=== PATIENT | female | born 1950 | race Hispanic/Latino ===

== ENCOUNTER 2018-06-08 05:44 | Observation (INO) | payer MEDICARE ==
--- NOTE | 2018-06-05 11:34 | Diagnostic Imaging Report ---
EXAMINATION: PA and lateral views of the chest. COMPARISON: None CLINICAL HISTORY: Preadmission, knee surgery DISCUSSION: Lines/tubes: None. Lungs: The lungs are well inflated and clear. No pneumonia or pulmonary edema. Pleura: No pleural effusion or pneumothorax. Heart and mediastinum: The cardiomediastinal silhouette is normal. Bones and soft tissues: No acute bony abnormalities. IMPRESSION: No acute cardiopulmonary abnormalities. Signed by: Dr. Cole Garcia M.D. on 06/05/2018 11:31 AM
[~2018-06-08] VITALS: Ht 127 cm; Wt 64.7 kg
[~2018-06-08 05:44] MED LIST: ATORVASTATIN CA40 MG PO; BACID PO; BACTRIM DS TAB1 EACH PO; CIPRO500 MG PO; LEVAQUIN250 MG PO; LEVOTHYROXINE88 MCG PO; LISINOPRIL10 MG PO; METFORMIN HCL500 MG PO; NOVOLIN 70100 UNITS/ SQ; OMEPRAZOLE40 MG PO; SIMVASTATIN40 MG PO; SYNTHROID88 MCG PO; TOUJEO SC
[2018-06-08] MEDS ORDERED: DEXAMETHASONE SOD PHOS 10 MG/1 ML VIAL ONE (06:36)
[2018-06-08] MEDS ORDERED: CELECOXIB 200 MG CAP ONE (06:36)
[2018-06-08] MEDS ORDERED: GABAPENTIN 300 MG CAP ONE (06:36)
[2018-06-08] MEDS ORDERED: CEFAZOLIN SOD 2 GM/D5W 50ML 50 ML IV ONE (06:36)
[2018-06-08] MEDS ORDERED: BACITRACIN 50,000 UNIT VIAL ONE (07:02)
[2018-06-08] MEDS ORDERED: TRANEXAMIC ACID 1,000 MG/10 ML ML ONE (07:02)
[2018-06-08] MEDS ORDERED: DEXTROSE 5% 250ML 250 ML IV ONE (07:03)
[2018-06-08] MEDS ORDERED: ROPIVACAINE 246.25 MG, EPINEPHRINE HCL 1:1000 0.5 MG, CLONIDINE HCL 0.08 MG, KETOROLAC ... INJ ONE ×5 (07:30)
[2018-06-08] MEDS ORDERED: DIPHENHYDRAMINE HCL INJ 50 MG/ML VIAL IM/IV PRN (10:00)
[2018-06-08] MEDS ORDERED: HYDROCODONE/APAP 7.5MG-325MG 1 EA TAB PO PRN (10:00)
[2018-06-08] MEDS ORDERED: HYDROCODONE/APAP 5MG-325MG TAB PO PRN (10:00)
[2018-06-08] MEDS ORDERED: ACETAMINOPHEN 650 MG SUPP PR PRN (10:00)
[2018-06-08] MEDS ORDERED: KETOROLAC TROMETHAMINE 30 MG/ML VIAL IV PRN (10:00)
[2018-06-08] MEDS ORDERED: ONDANSETRON HCL INJ 2 MG/ML VIAL IV PRN (10:00)
[2018-06-08] MEDS ORDERED: PROMETHAZINE HCL (IM) 25 MG/ML VIAL IM PRN (10:00)
[2018-06-08] MEDS ORDERED: DOCUSATE SODIUM 100 MG CAP PO PRN (10:00)
[2018-06-08 11:00] VITALS: BP 140/65
[2018-06-08] MEDS: SODIUM CHLORIDE 0.9% 1000ML 1,000 ML IV SCH ×2 (11:05→19:53)
[2018-06-08 11:21] VITALS: BP 140/65
--- NOTE | 2018-06-08 11:41 | Diagnostic Imaging Report ---
Exam: Left knee 2 views History: Postop Comparison: None. Findings: See impression Impression: Postoperative radiographs of the left knee show intact and appropriately positioned prosthetic hardware. Expected overlying skin lance and subcutaneous gas. No periprosthetic displaced fracture. Signed by: Dr. Arian Simmons M.D. on 06/08/2018 11:38 AM
[2018-06-08] MEDS: ACETAMINOPHEN 1000 MG/100 ML IV SCH ×2 (12:27→18:30)
[2018-06-08] MEDS ORDERED: CEFAZOLIN SOD 1 GM/D5W 50ML 50 ML IV SCH (14:00)
[2018-06-08 16:02] VITALS: BP 129/90
[2018-06-08] MEDS: ASPIRIN 325 MG TAB PO SCH (16:46)
[2018-06-08] MEDS: CEFAZOLIN SOD 1 GM VIAL IV SCH (16:46)
[2018-06-08] MEDS: CELECOXIB 200 MG CAP PO SCH (16:46)
[2018-06-08] MEDS ORDERED: ONDANSETRON HCL INJ 2 MG/ML VIAL ONE (17:00)
[2018-06-08] MEDS ORDERED: DEXAMETHASONE SOD PHOS INJ 4 MG/ML VIAL ONE (17:00)
[2018-06-08] MEDS ORDERED: PROPOFOL IV EMULSION 10 MG/ML 20 ML VIAL ONE (17:00)
[2018-06-08] MEDS ORDERED: SEVOFLURANE INHAL SOLN 250 ML PEN BTL ONE (17:00)
[2018-06-08] MEDS ORDERED: PHENYLEPHRINE HCL 1% 10 MG/ML VIAL ONE (17:00)
[2018-06-08] MEDS ORDERED: CELECOXIB 100 MG CAP PO SCH (17:00)
[2018-06-08] MEDS ORDERED: LIDOCAINE HCL 2% LOCAL INJ 5 ML SDV VIAL INJ ONE (17:00)
[2018-06-08] MEDS ORDERED: DEXTROSE 50% SYRINGE 50 ML IV PRN (17:15)
[2018-06-08] MEDS ORDERED: PANTOPRAZOLE SOD 40 MG TABEC PO PRN (17:15)
[2018-06-08] MEDS ORDERED: EPINEPHRINE HCL INJ 1 MG/ML AMP ONE (17:18)
[2018-06-08] MEDS ORDERED: BUPIVACAINE HCL 0.5% INJ 30 ML VIAL INJ ONE (17:18)
[2018-06-08] MEDS ORDERED: MIDAZOLAM HCL 2 MG/2 ML VIAL ONE (17:23)
[2018-06-08] MEDS ORDERED: FENTANYL CITRATE/PF 100MCG/2 ML INJ ONE (17:23)
[2018-06-08] MEDS: INSULIN LISPRO 100 UNIT/1 ML 3ML VIAL SQ SCH ×2 (17:46→20:37)
[2018-06-08 20:00] VITALS: BP 131/63
[2018-06-08 20:35] VITALS: BP 137/63
[2018-06-08] MEDS ORDERED: LISINOPRIL 10 MG TAB PO SCH (21:00)
[2018-06-08] MEDS ORDERED: INSULIN GLARGINE SC SCH (21:00)
[2018-06-08] MEDS ORDERED: LEVOTHYROXINE SODIUM 88 MCG TAB PO SCH (21:00)
[2018-06-08] MEDS ORDERED: ZOLPIDEM TARTRATE 5 MG TAB PO PRN (21:00)
[2018-06-08] MEDS ORDERED: SIMVASTATIN 40 MG TAB PO SCH (21:00)
[2018-06-08] MEDS ORDERED: LISINOPRIL 20 MG TAB PO SCH (21:00)
[2018-06-09] VITALS: BP 120/59
[2018-06-09] MEDS: CEFAZOLIN SOD 1 GM VIAL IV SCH ×2 (00:34→08:20)
[2018-06-09] MEDS: ACETAMINOPHEN 1000 MG/100 ML IV SCH ×2 (00:39→05:37)
[2018-06-09 04:00] VITALS: BP 102/55
[2018-06-09 05:52] LABS: BASOPHILS % 0.1 % (0.0-1.0); HEMATOCRIT 32.7 % (34.2-44.1); HEMOGLOBIN 10.9 g/dL (12.0-16.0); LYMPHOCYTES # (AUTO) 1.5 (1.0-3.2); LYMPHOCYTES % 9.7 % (18.0-39.1); MEAN CORPUSCULAR HEMOGLOBIN 28.9 pg (28-32); MEAN CORPUSCULAR HGB CONC 33.3 g/dL (31-35); MEAN CORPUSCULAR VOLUME 86.7 fL (81-99); MONOCYTES % 6.8 % (4.4-11.3); NEUTROPHILS # (AUTO) 12.7 (2.1-6.9); NEUTROPHILS % 82.9 % (38.7-80.0); PLATELET COUNT 177 x10e3/uL (140-360); RED BLOOD COUNT 3.77 x10e6/uL (3.6-5.1)
[2018-06-09] MEDS: SODIUM CHLORIDE 0.9% 1000ML 1,000 ML IV SCH (05:53)
[2018-06-09 06:20] LABS: ALBUMIN 3.3 g/dL (3.5-5.0); ALBUMIN/GLOBULIN RATIO 1.2 (0.8-2.0); ANION GAP 16.5 mmol/L (8-16); CREATININE, SERUM 1.1 mg/dL (0.57-1.11); POTASSIUM 4.5 mmol/L (3.5-5.1)
[2018-06-09 07:59] VITALS: BP 139/74
[2018-06-09] MEDS ORDERED: METFORMIN HCL 500 MG TAB PO SCH (08:00)
[2018-06-09 08:20] VITALS: BP 139/74
[2018-06-09] MEDS: INSULIN LISPRO 100 UNIT/1 ML 3ML VIAL SQ SCH ×2 (08:20→12:40)
[2018-06-09] MEDS: ASPIRIN 325 MG TAB PO SCH (08:20)
[2018-06-09] MEDS: CELECOXIB 200 MG CAP PO SCH (08:20)
--- NOTE | 2018-06-09 08:31 | Operative Report ---
DATE OF PROCEDURE: June 08, 2018 PREOPERATIVE DIAGNOSIS: Osteoarthritis, left knee. POSTOPERATIVE DIAGNOSIS: Osteoarthritis, left knee. PROCEDURE: Left total knee arthroplasty. [employer] RANGER: Ladarius Schafer PA-C The patient was brought to the operating room for induction of anesthesia. Throughout this case, my PA's assistance was necessary for retraction of soft tissue and positioning of the extremity. This allows for efficient and technically successful execution of the operation and is considered medically necessary. INDICATIONS: The patient is a 67-year-old lady who has end-stage arthritis of her left knee. She has failed conservative management and would like to proceed with a left total knee replacement. The risks and benefits of the procedure have been discussed in detail. The recovery has been explained. She states she understands and wishes to proceed. DESCRIPTION OF PROCEDURE: The patient was brought to the operating room and placed under general anesthetic. She received prophylactic antibiotics, a regional block, and tranexamic acid in the holding area. Her left lower extremity was prepped and draped in a sterile manner. A preoperative time out was performed. The extremity was exsanguinated and the proximal tourniquet was inflated to 350 mmHg. An anterior approach with a medial parapatellar arthrotomy was performed. There was evidence of breakthrough bleeding. The tourniquet was deflated. The wound was further exsanguinated a second time and the tourniquet was inflated to 350 mmHg. We proceed with the surgery. Soft tissue releases were performed to bring the knee up into flexion with the patella everted. Meniscal remnants and marginal osteophytes were removed. The cruciate ligaments were sacrificed. Throughout the case, a [employer] Persona Knee System was used. An extramedullary cutting guide was used to resect the proximal tibia. The cut was 2 mm referenced off of the affected medial side. The tibial baseplate was noted to be a size C. The central fin punch was impacted and attention was directed towards the distal femur. An intramedullary cutting guide was used to resect the distal femur in 5 degrees of valgus and rotation referencing off of a combination of landmarks including the epicondylar axis, Donna's line, and the posterior condyles. The femoral component was a size #4. The anterior and posterior cuts were made. Trial reductions were performed. A 10-mm ultracongruent tibial insert provided appropriate soft tissue balancing in full extension and 90 degrees of flexion. The patella was resurfaced with a 29 mm x 8 mm patellar button. The thickness was checked before and after and was right around 20 mm. There continued to be some breakthrough bleeding. The tourniquet was simply deflated. There was no increased bleeding with the tourniquet deflated. A 100 mL premixed pericapsular injection was placed into the surrounding soft tissue. The knee was thoroughly irrigated with a shower-tip pulsatile lavage. The components were cemented into place using a single mix of Palacos cement preloaded with antibiotics. Care was taken to remove extravasated cement. The wound was further irrigated while the cement cured. The arthrotomy was then carefully closed with interrupted #1 Ethibond. The knee was put through flexion and extension to ensure a secure closure. The skin was closed with subcuticular Vicryl and lance. A sterile bandage was applied. The patient was extubated and transported to the recovery room in stable condition. Blood loss was approximately 30 mL. At the end of the procedure, all needle and sponge counts were correct. Job#: [id number]
[2018-06-09] MEDS ORDERED: ACETAMINOPHEN 1000 MG/100 ML IV PRN (10:00)
[2018-06-09 11:39] VITALS: BP 131/62
[2018-06-09] MEDS ORDERED: ASPIRIN325 MG PO (12:53)
[2018-06-09] MEDS ORDERED: HYDROCODON-ACE1 EA12 PO (13:46)
--- NOTE | 2018-06-09 14:14 | Consultation ---
DATE OF CONSULTATION: INTERNAL MEDICINE CONSULTATION REASON FOR CONSULTATION: She is a 67-year-old female patient of [facility], presented to the hospital for total knee replacement, for left knee severe osteoarthritis. HISTORY OF PRESENT ILLNESS: Ms. Jorge Camacho is a 67-year-old female patient with history of coronary artery disease, peripheral artery disease, diabetes mellitus, hypertension, hyperlipidemia, and severe osteoarthritis, who had failed outpatient treatment for the osteoarthritis and now having a severe pain in the left knee. So, the patient was admitted for elective total knee arthroplasty, left knee. ALLERGIES: PATIENT IS ALLERGIC TO TRAMADOL. OTHER PAST MEDICAL HISTORY: Diabetes mellitus, hypertension, and hyperlipidemia. PAST SURGICAL HISTORY: Denies. SOCIAL HISTORY: Denies smoking, denies using alcohol. FAMILY HISTORY: Diabetes mellitus. MEDICATIONS: See from the list. REVIEW OF SYSTEMS: Severe knee pain, left is worst than the right. PHYSICAL EXAMINATION GENERAL: She is an elderly female patient lying in the bed, not in acute distress. VITALS: Temperature 98, pulse rate 88, respiration rate 20, blood pressure 120/78. HEENT: Normocephalic, atraumatic. NECK: No JVD. No lymphadenopathy. LUNGS: Bilateral equal air entry. No rales. No rhonchi. HEART: S1 and S2 regular. No murmur. No gallop. ABDOMEN: Soft. Bowel sounds are present. NEUROLOGICAL: No focal neurological deficit. ADMITTING IMPRESSION/DIAGNOSES 1. Left knee severe osteoarthritis, status post total knee arthroplasty. 2. Diabetes mellitus. 3. Hypertension. 4. Hyperlipidemia. 5. Hypothyroidism. PLAN AND RECOMMENDATIONS: Patient is having postop care and postop therapy. We will do Accu-Check a.c. and at bedtime with sliding scale coverage. We will use medium dose sliding scale insulin. We will monitor for electrolytes and anemia. Job#: [id number] VAS
== END 2018-06-09 14:20 | disposition home health service (06) ==
LOC: OR 05:44 → PACU V 09:55 → MED/SURG 10:55
PROVIDERS: ADMIT Specialist; ATTEND Specialist
DX: M17.12 Unilateral primary osteoarthritis, left knee (principal); E11.9 Type 2 diabetes mellitus without complications; I10 Essential (primary) hypertension; Z79.4 Long term (current) use of insulin; K21.9 Gastro-esophageal reflux disease without esophagitis; Z88.5 Allergy status to narcotic agent; I25.10 Atherosclerotic heart disease of native coronary artery without angina pectoris; E78.5 Hyperlipidemia, unspecified; Z83.3 Family history of diabetes mellitus; E03.9 Hypothyroidism, unspecified
CPT/HCPCS: 27447; 36415 ×2; 71046; 73560; 80053; 82948 ×2; 85025; 86850; 86900; 86920; 93005; 97116 ×2; 97161; G0378 ×2; G8978; G8979; J0171; J0690 ×2; J1100 ×2; J1885; J2001; J2250; J2370; J2405; J2795; J7030

== ENCOUNTER → 2021-04-10 | Outpatient (CLI) | payer OTHER ==
[~2021-04-10] MED LIST changes: +ASPIRIN325 MG PO; +HYDROCODON-ACE1 EA12 PO
== END ==
LOC: MAMMO 09:07
PROVIDERS: ATTEND Internal Medicine
DX: Z12.31 Encounter for screening mammogram for malignant neoplasm of breast (principal)

== ENCOUNTER → 2022-05-28 | Outpatient (CLI) | payer OTHER | LOC: MAMMO 09:36 | PROVIDERS: ATTEND Internal Medicine | DX: Z12.31 Encounter for screening mammogram for malignant neoplasm of breast (principal) | CPT/HCPCS: 77067 ==

== ENCOUNTER → 2023-07-08 | Outpatient (REF) | payer MEDICARE | LOC: MAMMO 08:46 | PROVIDERS: ATTEND Internal Medicine | DX: Z12.31 Encounter for screening mammogram for malignant neoplasm of breast (principal); M81.0 Age-related osteoporosis without current pathological fracture; E55.9 Vitamin D deficiency, unspecified | CPT/HCPCS: 77067; 77080 ==

== ENCOUNTER 2024-05-03 13:25 | Inpatient (IN) | payer MEDICARE ==
[~2024-05-03] VITALS: Ht 134.6 cm; Wt 59.0 kg
[2024-05-03 13:34] VITALS: TEMP 98.1
[2024-05-03 15:22] LABS: BASOPHILS # (AUTO) 0.1 (0.0-0.1); BASOPHILS % 0.4 % (0.0-1.0); EOSINOPHILS % 0.1 % (0.0-6.0); HEMATOCRIT 49.5 % (34.2-44.1); HEMOGLOBIN 15.9 g/dL (12.0-16.0); LYMPHOCYTES # (AUTO) 0.8 (1.0-3.2); MEAN CORPUSCULAR HEMOGLOBIN 29.3 pg (28-32); MEAN CORPUSCULAR HGB CONC 32.1 g/dL (31-35); MEAN CORPUSCULAR VOLUME 91.3 fL (81-99); MONOCYTES # (AUTO) 0.8 (0.2-0.8); MONOCYTES % 6.3 % (4.4-11.3); NEUTROPHILS # (AUTO) 10.2 (2.1-6.9); NEUTROPHILS % 85.7 % (38.7-80.0); PLATELET COUNT 158 x10e3/uL (140-360); RED BLOOD COUNT 5.42 x10e6/uL (3.6-5.1); RED CELL DISTRIBUTION WIDTH 14.2 % (11.7-14.4); WHITE BLOOD COUNT 11.87 x10e3/uL (4.8-10.8)
[2024-05-03] MEDS: Morphine 2mg Syringe 2 MG/ML SYR IV STA (15:52)
[2024-05-03] MEDS: ONDANSETRON HCL INJ 2MG/ML 2ML 2 MG/ML VIAL IV STA (15:52)
[2024-05-03] MEDS: SODIUM CHLORIDE 0.9% 1000ML 1,000 ML IV STA (15:52)
[2024-05-03] MEDS ORDERED: DEXTROSE 50% SYRINGE 50 ML IV PRN (16:00)
[2024-05-03 16:05] LABS: INR 0.98; PROTHROMBIN TIME 13.5 seconds (11.9-14.5)
[2024-05-03 16:06] LABS: PARTIAL THROMBOPLASTIN TIME 25.8 seconds (23.8-35.5)
[2024-05-03 16:13] LABS: ALBUMIN 3.3 g/dL (3.5-5.0); ALBUMIN/GLOBULIN RATIO 0.9 (0.8-2.0); ANION GAP 15.6 mmol/L (8-16); BILIRUBIN,TOTAL 1.1 mg/dL (0.2-1.2); CALCIUM 8.5 mg/dL (8.4-10.2); CREATININE, SERUM 1.12 mg/dL (0.57-1.11); MAGNESIUM 1.7 MG/DL (1.3-2.1); POTASSIUM 3.6 mmol/L (3.5-5.1)
[2024-05-03 16:19] LABS: TROPONIN I 0.005 ng/mL (0-0.300)
[2024-05-03] MEDS: INSULIN LISPRO 100 UNIT/1 ML 3ML VIAL SQ SCH (16:30)
[2024-05-03 19:27] LABS: TROPONIN I 0.009 ng/mL (0-0.300)
[2024-05-03] MEDS: SODIUM CHLORIDE 0.9% 1000ML 1,000 ML IV SCH (21:50)
[2024-05-03] MEDS ORDERED: SODIUM CHLORIDE 0.9% 1000ML 1,000 ML ONE (21:53)
[2024-05-03 21:59] VITALS: PULSE 76; RESP 20
[2024-05-03 22:30] VITALS: BP 177/87; PULSE 81; RESP 17; TEMP 98.4; O2SAT 98
[2024-05-03] MEDS: Morphine 2mg Syringe 2 MG/ML SYR IV PRN (23:26)
[2024-05-04] VITALS (9 sets, daily range): BP systolic 134–177; BP diastolic 66–94; PULSE 72–88; RESP 16–20; TEMP 97.9–98.9; O2SAT 95–100
[2024-05-04 05:41] LABS: BASOPHILS # (AUTO) 0.1 (0.0-0.1); BASOPHILS % 0.5 % (0.0-1.0); EOSINOPHILS # (AUTO) 0.1 (0.0-0.4); EOSINOPHILS % 1.4 % (0.0-6.0); HEMATOCRIT 40.5 % (34.2-44.1); LYMPHOCYTES # (AUTO) 1.5 (1.0-3.2); LYMPHOCYTES % 14.4 % (18.0-39.1); MEAN CORPUSCULAR HEMOGLOBIN 29.5 pg (28-32); MEAN CORPUSCULAR HGB CONC 32.1 g/dL (31-35); MONOCYTES # (AUTO) 0.8 (0.2-0.8); MONOCYTES % 7.8 % (4.4-11.3); NEUTROPHILS # (AUTO) 7.6 (2.1-6.9); NEUTROPHILS % 75.4 % (38.7-80.0); PLATELET COUNT 128 x10e3/uL (140-360); RED CELL DISTRIBUTION WIDTH 14.2 % (11.7-14.4)
[2024-05-04 06:08] LABS: ALBUMIN 2.8 g/dL (3.5-5.0); ALBUMIN/GLOBULIN RATIO 0.8 (0.8-2.0); ANION GAP 9.5 mmol/L (8-16); CALCIUM 8.5 mg/dL (8.4-10.2); CREATININE, SERUM 0.81 mg/dL (0.57-1.11); POTASSIUM 3.5 mmol/L (3.5-5.1); TOTAL PROTEIN 6.1 g/dL (6.5-8.1)
[2024-05-04 06:29] LABS: TROPONIN I 0.013 ng/mL (0-0.300)
[2024-05-04] MEDS ORDERED: PANTOPRAZOLE SOD 40 MG TABEC PO PRN (06:30)
[2024-05-04] MEDS ORDERED: ALBUTEROL/IPRATROPIUM 3 ML NEB NEB PRN (06:30)
[2024-05-04] MEDS ORDERED: SIMETHICONE 80 MG CHEW PO PRN (06:30)
[2024-05-04 07:39] LABS: CHOL/HDL RATIO 3.1 (3.0-3.6)
[2024-05-04] MEDS ORDERED: ACETAMINOPHEN 1000 MG/100 ML 100 ML IV ONE (11:45)
[2024-05-04] MEDS ORDERED: SUGAMMADEX SODIUM 200 MG/2 ML VIAL IV ONE (11:45)
[2024-05-04] MEDS ORDERED: BUPIVACAINE HCL 0.5% INJ 30 ML VIAL INJ ONE (12:19)
[2024-05-04] MEDS ORDERED: EPHEDRINE SULFATE INJ 50 MG/ML VIAL ONE (12:43)
[2024-05-04] MEDS ORDERED: ONDANSETRON HCL INJ 2MG/ML 2ML 2 MG/ML VIAL ONE (12:43)
[2024-05-04] MEDS ORDERED: LIDOCAINE HCL 2% LOCAL INJ 5 ML SDV VIAL INJ ONE (12:43)
[2024-05-04] MEDS ORDERED: ROCURONIUM BROMIDE 10 MG/ML 5ML VIAL IV ONE (12:43)
[2024-05-04] MEDS ORDERED: PROPOFOL IV EMULSION 10 MG/ML 20 ML VIAL ONE (12:43)
[2024-05-04] MEDS ORDERED: METOCLOPRAMIDE HCL 10 MG/2ML VIAL ONE (12:43)
[2024-05-04] MEDS ORDERED: SEVOFLURANE INHAL SOLN 250 ML PEN BTL ONE (12:43)
[2024-05-04] MEDS ORDERED: ACETAMINOPHEN 1000 MG/100 ML IV ONE (12:43)
[2024-05-04] MEDS ORDERED: SUCCINYLCHOLINE CHLORIDE 20 MG/ML 10ML VIAL ONE (12:43)
[2024-05-04] MEDS ORDERED: ROPIVACAINE 0.5% 5 MG/ML 30 ML SDV ONE (12:57)
[2024-05-04] MEDS ORDERED: EPINEPHRINE HCL 1:1000 1ML 1 MG/ML AMP ONE (12:57)
[2024-05-04] MEDS ORDERED: MIDAZOLAM HCL 2 MG/2 ML VIAL ONE (13:45)
[2024-05-04] MEDS ORDERED: FENTANYL CITRATE/PF 100MCG/2 ML INJ ONE (13:45)
[2024-05-04] MEDS: SIMVASTATIN 40 MG TAB PO SCH (21:57)
[2024-05-04] MEDS: LEVOTHYROXINE SODIUM 88 MCG TAB PO SCH (21:57)
[2024-05-05] VITALS (11 sets, daily range): BP systolic 128–176; BP diastolic 66–89; PULSE 81–97; RESP 18–20; TEMP 98.1–100.5; O2SAT 93–100
[2024-05-05 05:23] LABS: BASOPHILS % 0.5 % (0.0-1.0); EOSINOPHILS # (AUTO) 0.2 (0.0-0.4); EOSINOPHILS % 2.3 % (0.0-6.0); HEMATOCRIT 34.5 % (34.2-44.1); LYMPHOCYTES # (AUTO) 1.3 (1.0-3.2); LYMPHOCYTES % 15.3 % (18.0-39.1); MEAN CORPUSCULAR HEMOGLOBIN 29.6 pg (28-32); MEAN CORPUSCULAR HGB CONC 31.9 g/dL (31-35); MONOCYTES # (AUTO) 0.6 (0.2-0.8); MONOCYTES % 7.4 % (4.4-11.3); NEUTROPHILS # (AUTO) 6.5 (2.1-6.9); PLATELET COUNT 134 x10e3/uL (140-360); RED BLOOD COUNT 3.71 x10e6/uL (3.6-5.1); RED CELL DISTRIBUTION WIDTH 14.1 % (11.7-14.4)
[2024-05-05 06:09] LABS: CALCIUM 7.5 mg/dL (8.4-10.2); CREATININE, SERUM 0.77 mg/dL (0.57-1.11)
[2024-05-05] MEDS: ONDANSETRON HCL INJ 2MG/ML 2ML 2 MG/ML VIAL IV PRN (13:09)
[2024-05-05] MEDS: DOCUSATE SODIUM 100 MG CAP PO PRN (20:35)
[2024-05-05] MEDS: METOPROLOL TARTRATE INJ 1 MG/ML VIAL IV PRN (20:35)
[2024-05-06] VITALS (9 sets, daily range): BP systolic 144–161; BP diastolic 69–88; PULSE 79–96; RESP 16–22; TEMP 97.8–99.9; O2SAT 95–100
[2024-05-06] MEDS: MELATONIN 3 MG TAB PO PRN (01:31)
[2024-05-06] MEDS: ACETAMINOPHEN 325 MG TAB PO PRN (01:31)
[2024-05-06 06:36] LABS: BASOPHILS # (AUTO) 0.1 (0.0-0.1); BASOPHILS % 0.5 % (0.0-1.0); EOSINOPHILS # (AUTO) 0.4 (0.0-0.4); EOSINOPHILS % 3.7 % (0.0-6.0); HEMATOCRIT 34.1 % (34.2-44.1); HEMOGLOBIN 10.8 g/dL (12.0-16.0); LYMPHOCYTES # (AUTO) 1.5 (1.0-3.2); LYMPHOCYTES % 15.5 % (18.0-39.1); MEAN CORPUSCULAR HEMOGLOBIN 29.1 pg (28-32); MEAN CORPUSCULAR HGB CONC 31.7 g/dL (31-35); MEAN CORPUSCULAR VOLUME 91.9 fL (81-99); MONOCYTES # (AUTO) 0.8 (0.2-0.8); MONOCYTES % 8.3 % (4.4-11.3); NEUTROPHILS # (AUTO) 6.9 (2.1-6.9); NEUTROPHILS % 71.4 % (38.7-80.0); PLATELET COUNT 142 x10e3/uL (140-360); RED BLOOD COUNT 3.71 x10e6/uL (3.6-5.1); RED CELL DISTRIBUTION WIDTH 13.6 % (11.7-14.4); WHITE BLOOD COUNT 9.64 x10e3/uL (4.8-10.8)
[2024-05-06 07:02] LABS: ANION GAP 11.8 mmol/L (8-16); CALCIUM 7.5 mg/dL (8.4-10.2); CREATININE, SERUM 0.8 mg/dL (0.57-1.11)
[2024-05-06 07:09] LABS: POTASSIUM 2.8 mmol/L (3.5-5.1)
[2024-05-06] MEDS: POTASSIUM CHLORIDE 20 MEQ TAB CR PO ONE (10:01)
[2024-05-07] VITALS (10 sets, daily range): BP systolic 138–161; BP diastolic 68–84; PULSE 69–97; RESP 16–20; TEMP 98–99.9; O2SAT 95–100
[2024-05-07] MEDS: LISINOPRIL 10 MG TAB PO SCH (14:19)
[2024-05-08] VITALS: BP 130/62; PULSE 69; RESP 18; TEMP 98.3; O2SAT 97
[2024-05-08 03:20] VITALS: BP 142/72; PULSE 82; RESP 18; TEMP 99.8; O2SAT 97
[2024-05-08 08:30] VITALS: BP 149/72; PULSE 88; RESP 18; TEMP 99.2; O2SAT 100
[2024-05-08 11:02] VITALS: PULSE 90; RESP 20; O2SAT 92
[2024-05-08 12:10] VITALS: BP 153/76; PULSE 88; RESP 20; TEMP 97.5; O2SAT 100
== END 2024-05-08 16:32 | DRG 481 ==
LOC: ER 13:54 → ERHOLD 15:56 → UNDOADMIN 15:56 → MED/SURG3 22:21
PROVIDERS: ADMIT Internal Medicine; ATTEND Internal Medicine
PROC: 0QS606Z Reposition Right Upper Femur with Intramedullary Internal Fixation Device, Open Approach (ICD-10-PCS; principal; 2024-05-04 13:13)
DX: S72.141A Displaced intertrochanteric fracture of right femur, initial encounter for closed fracture (principal); N17.9 Acute kidney failure, unspecified; D69.6 Thrombocytopenia, unspecified; I10 Essential (primary) hypertension; E11.9 Type 2 diabetes mellitus without complications; E03.9 Hypothyroidism, unspecified; F32.A Depression, unspecified; E78.5 Hyperlipidemia, unspecified; I25.10 Atherosclerotic heart disease of native coronary artery without angina pectoris; W01.0XXA Fall on same level from slipping, tripping and stumbling without subsequent striking against object, initial encounter; Y92.019 Unspecified place in single-family (private) house as the place of occurrence of the external cause; Z79.82 Long term (current) use of aspirin; Z79.890 Hormone replacement therapy; Z79.84 Long term (current) use of oral hypoglycemic drugs; Z88.5 Allergy status to narcotic agent
CPT/HCPCS: 36415; 70450; 71045; 72125; 76000; 80048; 80053; 80061; 82550; 82948; 83036; 83735; 84132; 84484; 85025; 85610; 85730; 93005; 93306; 94799; 99252; 99284; C1713; J0171; J0330; J0690; J2001; J2250; J2270; J2405; J2470; J2765; J2795; J7030